=== PATIENT | female | born 1965 | race Caucasian/White ===

== ENCOUNTER 2018-10-09 21:39 | Emergency (ER) | payer OTHER ==
[2018-10-09] MEDS ORDERED: Ketorolac Tromethamine 30 MG/ML VIAL ONE (22:10)
[2018-10-09 22:16] LABS: Clarity Hazy (Clear)
[2018-10-09 22:17] LABS: Glucose, Urine (Dipstick) >=1000 mg/dL (Negative); Leukocyte Negative (Negative); Nitrite Positive (Negative); Protein, Urine (Dipstick) Negative (Neg-Trace)
[2018-10-09 22:18] LABS: Bilirubin Negative (Negative); Blood, Urine Negative (Negative)
[2018-10-09 22:24] LABS: Bacteria/HPF 3+ HPF (None Seen); RBC/HPF 0-3 HPF (0-3); Squamous Epithelial 0-3 HPF (0-3); WBC/HPF 0-3 HPF (0-3)
[2018-10-09 22:37] LABS: Hemoglobin 16.6 g/dL (12.0-16.0); Mean Corpuscular HGB CONC 33.7 g/dL (32.0-36.0); Mean Corpuscular Hemoglobin 34.2 pg (27.0-31.0); Mean Platelet Volume 9.2 fL (7.4-10.4); Platelet Count 156 thou/uL (130-400); RBC Distribution Width 12.4 % (11.5-14.5); Red Blood Cell (RBC) Count 4.85 mill/uL (4.20-5.40); White Blood Cell (WBC) Count 5.2 thou/uL (4.8-10.8)
[2018-10-09 22:48] LABS: ALT (SGPT) 11 U/L (8-55); AST (SGOT) 17 U/L (5-34); Albumin 4.4 g/dL (3.5-5.0); Alkaline Phosphatase 75 U/L (40-150); Anion Gap 16 mmol/L (10-20); BUN (Urea Nitrogen) 13 mg/dL (9.8-20.1); Bilirubin, Total 0.9 mg/dL (0.2-1.2); Calc. Creatinine Clearance 0 mL/min (70-130); Calcium 10.1 mg/dL (7.8-10.44); Carbon Dioxide 28 mmol/L (22-29); Chloride 101 mmol/L (98-107); Estimated GFR-MDRD 77; Globulin 2.5 g/dL (2.4-3.5); Glucose 278 mg/dL (70-105); Potassium 3.6 mmol/L (3.5-5.1); Protein, Total 6.9 g/dL (6.0-8.3); Sodium 141 mmol/L (136-145)
[2018-10-09] MEDS ORDERED: cefTRIAXone\\ROCEPHIN 2 GM VIAL ONE (22:49)
[2018-10-09] MEDS ORDERED: Sodium Chloride 0.9% 100 ML ONE (22:52)
[2018-10-09 22:54] LABS: #Basophils 0.1 thou/uL (0.0-0.2); #Eosinphils 0.4 thou/uL (0.0-0.7); #Lymphocytes 1.9 thou/uL (1.20-3.40); #Monocytes 0.4 thou/uL (0.11-0.59); #Neutrophils 2.5 thou/uL (1.40-6.50); %Basophils 1.1 % (0.0-1.0); %Eosinophils 7.4 % (0.0-10.0); %Lymphocytes 36.3 % (21.0-51.0); %Monocytes 7.4 % (0.0-10.0); %Neutrophils 47.8 % (42.0-75.0); MDiff Complete? YES; Macrocytosis SLIGHT = 6-15 cells (100X) (0-5/hpf); Platelet Morphology Comment Appears Decreased
--- NOTE | 2018-10-10 09:07 | CT ---
PRELIMINARY REPORT/[facility]/EMERGENTY AFTER-HOURS PROCEDURE CT Abdomen and Pelvis Without Contrast EXAM DATE/TIME: 10/09/2018 10:04 PM CLINICAL HISTORY: 52 years old, female; Abdominal pain; Localized; Left lower quadrant (llq); Patient HX: PT stated she started having llq abd pain this morning that is getting worse instead of better TECHNIQUE: Imaging protocol: Axial computed tomography images of the abdomen and pelvis without contrast. Becerra l and sagittal reformatted images were created and reviewed. Radiation optimization: All CT scans at this facility use at least one of these dose optimization huber hniques: automated exposure control; mA and/or kV adjustment per patient size (includes targeted exam s where dose is matched to clinical indication); or iterative reconstruction. COMPARISON: No relevant prior studies available. FINDINGS: ABDOMEN: Liver: Normal. No mass. Gallbladder and bile ducts: Normal. No calcified stones. No ductal dilation. Pancreas: Normal. No ductal dilation. Spleen: Normal. No splenomegaly. Adrenals: Normal. No mass. Kidneys and ureters: Normal. No hydronephrosis. Stomach and bowel: Mild wall thickening of the distal descending and proximal sigmoid colon Appendix: No evidence of appendicitis. PELVIS: Bladder: Unremarkable as visualized. Reproductive: Unremarkable as visualized. ABDOMEN and PELVIS: Intraperitoneal space: Normal. No free air. No significant fluid collection. Bones/joints: No acute fracture. No dislocation. Soft tissues: Unremarkable. Vasculature: Normal. No abdominal aortic aneurysm. Lymph nodes: Normal. No enlarged lymph nodes. IMPRESSION: Mild wall thickening of the distal descending and proximal sigmoid colon possibly representing mild c olitis. Please correlate The right ovary appears enlarged and partially cystic. This could be further characterized with ultra sound. Thank you for allowing us to participate in the care of your patient. Dictated and Authenticated by: Rudy Tijerina MD 10/09/2018 10:50 PM Central Time ([place] & [place]) CT ABDOMEN AND PELVIS WITHOUT CONTRAST: 10/09/2018 HISTORY/TECHNIQUE: A spiral CT of the abdomen and pelvis was performed for evaluation of left lower quadrant pain. Axia l slices were acquired, followed by coronal and sagittal reconstructions. FINDINGS: ABDOMEN: The lung bases are clear. The liver, spleen, pancreas, adrenal glands, gallbladder, kidney s, and abdominal aorta are unremarkable in appearance, within the limitations of a noncontrast study. The bowel shows no dilation. The zheng of the lower descending and proximal sigmoid colon may be sli ghtly thickened. There is no stranding around them. Mild colitis is possible but not definite. No diverticulitis is seen. No free air or free fluid is detected. The appendix is difficult to identif y, but no obvious signs of appendicitis are found. PELVIS: There is a 3 cm cystic area in the right adnexa. An ovarian cyst is possible. Ultrasound w ould be helpful in further characterization. No substantial free fluid is present. The vertebrae of the lumbar spine appear intact, but there is disk space narrowing at L1-L2. IMPRESSION: Questionable mild thickening of the distal descending and proximal sigmoid colon. Possible right ovarian cyst. Report in agreement with preliminary reading by Monica. POS: HOME
== END 2018-10-09 23:30 | disposition home or self-care (01) ==
LOC: BURERS 21:39
DX: N39.0 Urinary tract infection, site not specified (principal); F17.210 Nicotine dependence, cigarettes, uncomplicated; E10.40 Type 1 diabetes mellitus with diabetic neuropathy, unspecified; F31.9 Bipolar disorder, unspecified; Z79.899 Other long term (current) drug therapy
CPT/HCPCS: 36416; 74176; 80053; 81003; 81015; 85025; 94760; 96361; 96365; 96375; J0696; J1885; J3490

== ENCOUNTER 2018-10-11 16:16 | Emergency (ER) | payer OTHER ==
[2018-10-11] MEDS ORDERED: traMADol HCl 50 MG TAB ONE (16:43)
[2018-10-11] MEDS ORDERED: Dicyclomine 20 MG TAB ONE (16:43)
[2018-10-11] MEDS ORDERED: cefTRIAXone\\ROCEPHIN 1 GM VIAL ONE (16:44)
== END 2018-10-11 17:10 | disposition home or self-care (01) ==
LOC: BURERS 16:16
DX: K52.9 Noninfective gastroenteritis and colitis, unspecified (principal); N39.0 Urinary tract infection, site not specified; E10.40 Type 1 diabetes mellitus with diabetic neuropathy, unspecified; F17.210 Nicotine dependence, cigarettes, uncomplicated; Z79.899 Other long term (current) drug therapy
CPT/HCPCS: 96372; J0696

== ENCOUNTER 2021-05-04 10:25 | Emergency (ER) | payer OTHER ==
[2021-05-04 11:28] LABS: Hemoglobin 14.2 g/dL (12.0-16.0); Mean Corpuscular HGB CONC 35.3 g/dL (32.0-36.0); Mean Corpuscular Hemoglobin 34.1 pg (27.0-31.0); Mean Corpuscular Volume 96.7 fL (78.0-98.0); Mean Platelet Volume 8.7 fL (7.4-10.4); Platelet Count 169 thou/uL (130-400); Red Blood Cell (RBC) Count 4.15 mill/uL (4.20-5.40); White Blood Cell (WBC) Count 20.2 thou/uL (4.8-10.8)
[2021-05-04 11:46] LABS: ALT (SGPT) 28 U/L (8-55); AST (SGOT) 24 U/L (5-34); Albumin 3.3 g/dL (3.5-5.0); Alkaline Phosphatase 160 U/L (40-110); Anion Gap 16 mmol/L (10-20); BUN (Urea Nitrogen) 18 mg/dL (9.8-20.1); Bilirubin, Total 0.7 mg/dL (0.2-1.2); CK (CPK) 18 U/L (29-168); Calc. Creatinine Clearance 0 mL/min (70-130); Calcium 11.2 mg/dL (7.8-10.44); Carbon Dioxide 24 mmol/L (22-29); Chloride 95 mmol/L (98-107); Globulin 2.5 g/dL (2.4-3.5); Potassium 3.9 mmol/L (3.5-5.1); Protein, Total 5.8 g/dL (6.0-8.3); Sodium 131 mmol/L (136-145)
[2021-05-04 11:51] LABS: Base Excess-Venous -0.5 mmol/L (-2.0 to 3.0); Bicarbonate (HCO3v) 24.6 mmol/L (22.0-28.0); CO2 Tension (PvCO2) 41.1 mmHg (42.0-51.0); Calcium, Ionized 1.39 mmol/L (1.15-1.33); Chloride 93 mmol/L (98-107); Hemoglobin - Calc 14.1 g/dL (12.0-16.0); Potassium 3.7 mmol/L (3.5-5.1); Sodium 131 mmol/L (138-145); T. Carbon Dioxide 25.9 mmol/L (22.0-28.0); vO2 Saturation-calc 93.6 % (60.0-85.0)
[2021-05-04 12:02] LABS: Band 19 % (5-11); Eosinophils 1 % (0-10); MDiff Complete? YES; Monocytes 4 % (0-10); Neutrophil 76 % (42-75); Platelet Morphology Comment Appears Adequate; RBC Morphology Normal
[2021-05-04 12:09] LABS: Glucose 556 mg/dL (70-105); Lipase Less than 4 U/L (8-78)
[2021-05-04] MEDS ORDERED: Cefepime 2 GM VIAL ONE (12:49)
[2021-05-04] MEDS ORDERED: Sodium Chloride 0.9% 100 ML ONE (12:50)
[2021-05-04 13:27] LABS: SARS-CoV-2 NAA Rapid Test Not Detected (NotDetected)
[2021-05-04] MEDS ORDERED: Insulin Regular 300 UNITS/3 ML VIAL ONE (13:29)
[2021-05-04 14:14] LABS: Bilirubin Negative (Negative); Blood, Urine Moderate (Negative); Clarity Hazy (Clear); Glucose, Urine (Dipstick) >=1000 mg/dL (Negative); Ketone, Urine Negative (Negative); Leukocyte Trace (Negative); Nitrite Negative (Negative); Protein, Urine (Dipstick) 100 mg/dL (Neg-Trace); Urobilinogen 0.2 mg/dL (Less than 2)
[2021-05-04 14:16] LABS: Bacteria/HPF 2+ HPF (None Seen); Mucous/LPF 1+ LPF (<2+); RBC/HPF 0-3 HPF (0-3); Squamous Epithelial 0-3 HPF (0-3)
[2021-05-04] MEDS ORDERED: Acetaminophen 500 MG TAB ONE (14:31)
[2021-05-04] MEDS ORDERED: Hyoscyamine Sulfate SL 0.125 mg Tablet ONE (14:33)
== END 2021-05-04 17:55 | disposition short-term general hospital (02) ==
LOC: BURERS 10:25
DX: N39.0 Urinary tract infection, site not specified (principal); A41.9 Sepsis, unspecified organism; E11.65 Type 2 diabetes mellitus with hyperglycemia; I51.7 Cardiomegaly; F17.210 Nicotine dependence, cigarettes, uncomplicated; E11.40 Type 2 diabetes mellitus with diabetic neuropathy, unspecified; Z20.822 Contact with and (suspected) exposure to COVID-19; Z79.4 Long term (current) use of insulin
CPT/HCPCS: 0240U; 36415; 36416; 71045; 80053; 81003; 81015; 82330; 82550; 82803; 83690; 83735; 84484; 85025; 87040; 87077; 87149; 93005; 96365; 96366; 96367; 96375; J0692; J1815; J3370; J3490

== ENCOUNTER 2021-09-18 18:46 | Emergency (ER) | payer OTHER | END 2021-09-18 20:35 | disposition home or self-care (01) | LOC: BURERS 18:46 | DX: G56.01 Carpal tunnel syndrome, right upper limb (principal); E10.40 Type 1 diabetes mellitus with diabetic neuropathy, unspecified; F17.210 Nicotine dependence, cigarettes, uncomplicated; Z79.4 Long term (current) use of insulin; Z79.899 Other long term (current) drug therapy | CPT/HCPCS: 99283 ==

== ENCOUNTER 2022-06-04 16:07 | Emergency (ER) | payer OTHER | END 2022-06-04 16:51 | disposition home or self-care (01) | LOC: BURERS 16:07 | DX: J44.9 Chronic obstructive pulmonary disease, unspecified (principal); J06.9 Acute upper respiratory infection, unspecified; E11.9 Type 2 diabetes mellitus without complications; F17.210 Nicotine dependence, cigarettes, uncomplicated | CPT/HCPCS: 99283 ==

== ENCOUNTER 2023-11-27 12:28 | Emergency (ER) | payer OTHER | END 2023-11-27 13:39 | disposition home or self-care (01) | LOC: BURERS 12:28 | DX: M25.552 Pain in left hip (principal); F17.210 Nicotine dependence, cigarettes, uncomplicated | CPT/HCPCS: 72170 ==

== ENCOUNTER 2024-12-31 12:33 | Emergency (ER) | payer OTHER | END 2024-12-31 13:45 | disposition home or self-care (01) | LOC: BURERS 12:33 | DX: M54.50 Low back pain, unspecified (principal); E11.9 Type 2 diabetes mellitus without complications; F17.210 Nicotine dependence, cigarettes, uncomplicated | CPT/HCPCS: 72100; 99283 ==